=== PATIENT | male | born 1985 | race Caucasian/White ===

== ENCOUNTER 2016-12-15 09:29 | Emergency (ER) | payer OTHER ==
[~2016-12-15] VITALS: Ht 175.3 cm; Wt 80.7 kg
[~2016-12-15 09:29] MED LIST: /MUPINAS; ACET65TA OR; BACT800T; BACT800T OR; DOXY100C42 PO; IBUP200T2 PO; KEFL500C OR; MULTIVITAMIN PO; NEOSSOL TOP; No Historical Meds; VICO5TAB
[2016-12-15] MEDS ORDERED: FINA5TAB2 PO (09:44)
--- NOTE | 2016-12-15 10:52 | REP ---
CT of the lumbar spine without IV contrast: Axial images are acquired with helical scanning and are reformatted in sagittal and coronal projections. Vertebral body heights, interspacing alignment are normal. No vertebral body compression deformities. There is no spondylolysis or spondylolisthesis. The facets are normally aligned and otherwise unremarkable. 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 This should be correlated with clinical point tenderness. There are no focal disc protrusions. There is broad-based posterior disc bulging and L4-5 and L5 S1 without nerve root compression or displacement. 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 Correlate with clinical point tenderness. No focal disc protrusions. There is broad-based posterior bulging of the L4-5 and L5-S1 discs without nerve root displacement or compression. No vertebral compression or fracture otherwise. Signed by Binu De La Garza MD 12/15/2016 10:43 A
[2016-12-15] MEDS ORDERED: NAPR500T PO (11:02)
[2016-12-15] MEDS ORDERED: VALI5TAB PO (11:02)
[2016-12-15 11:11] VITALS: BP 162/72
--- NOTE | 2016-12-15 21:46 | ED PDOC ---
Post-Departure Follow-Up dr valentine faxed formal report of ct ls spine for fu Spencer Ramos MD Dec 15, 2016 21:46
== END 2016-12-15 11:14 | disposition home or self-care (01) ==
LOC: M ED 10:20
DX: M54.5 Low back pain (principal)

== ENCOUNTER → 2017-11-04 | Outpatient (REF) | payer OTHER ==
[2017-11-04 12:29] LABS: SEMEN APPEARANCE OPAQUE (OPAQUE); SEMEN VISCOSITY LIQUID (LIQUID); SEMEN pH 8.5 (7.0-8.0); SPERM ABNORMAL FORMS WBC'S NOTED; SPERM CONCENTRATION 88.1 M/ml (>=15.0); WBC CONCENTRATION >1 M/ml (<=1 M/ml)
[2017-11-04 12:30] LABS: % NORMAL FORMS 19 % (>=4); IMMOTILITY 25 %; NON PROGRESSIVE MOTILITY (c) 7 %; PROGRESSIVE MOTILITY (a) 68 % (>=32); SPERM# 176.3 M/Ejac (>=39); TOTAL FUNCTIONAL 44.9 M/Ejac.; TOTAL MOTILITY 75 % (>=40); TOTAL PROGRESSIVE SPERM 119.1 M/Ejac.
== END ==
LOC: M LAB REF 12:22
DX: Z31.61 Procreative counseling and advice using natural family planning (principal)

== ENCOUNTER → 2018-07-01 | Outpatient (REF) | payer OTHER ==
[2018-07-04 00:06] LABS: Lyme Disease IgG/IgM Antibodie <0.91 ISR (0.00-0.90); Lyme Disease IgM Ab Quantitati <0.80 index (0.00-0.79)
== END ==
LOC: M LAB REF 16:03
DX: R21 Rash and other nonspecific skin eruption (principal)

== ENCOUNTER → 2018-10-26 | Outpatient (REF) | payer OTHER ==
[~2018-10-26] MED LIST changes: +FINA5TAB2 PO; +NAPR-50 PO; +VALI5TAB PO
== END ==
LOC: M LAB REF 12:22
PROVIDERS: ATTEND Family Medicine
DX: Z51.81 Encounter for therapeutic drug level monitoring (principal)

== ENCOUNTER → 2021-07-01 | Outpatient (REF) | payer OTHER ==
[~2021-07-01] MED LIST changes: -/MUPINAS; +BACT2OIN12; -NAPR-50 PO; +NAPR-837 PO
[2021-07-01 13:29] LABS: RSV AMPLIFICATION NEGATIVE (NEGATIVE)
== END ==
LOC: M LAB REF 12:00
PROVIDERS: ATTEND Specialist
DX: Z20.822 Contact with and (suspected) exposure to COVID-19 (principal)

== ENCOUNTER → 2022-03-26 | Outpatient (CLI) | payer OTHER ==
[~2022-03-26] MED LIST changes: +ISOVUE-370 76% 100ML VIAL As Ordered ONE
== END ==
LOC: M RAD 16:01
PROVIDERS: ATTEND Otolaryngology
DX: K13.79 Other lesions of oral mucosa (principal)
CPT/HCPCS: 70491; Q9967

== ENCOUNTER → 2022-04-10 | Outpatient (REF) | payer OTHER ==
[~2022-04-10] MED LIST changes: -ISOVUE-370 76% 100ML VIAL As Ordered ONE
== END ==
LOC: M SMT 17:07
PROVIDERS: ATTEND Urology
DX: Z30.2 Encounter for sterilization (principal)

== ENCOUNTER → 2022-07-02 | Outpatient (REF) | payer OTHER ==
[2022-07-02 09:36] LABS: SEMEN APPEARANCE OPAQUE (OPAQUE); SEMEN VISCOSITY LIQUID (LIQUID); SEMEN VOLUME 2.2 ml (2.0-5.0)
[2022-07-02 09:37] LABS: WBC CONCENTRATION <=1 M/ml (<=1 M/ml)
== END ==
LOC: M SMT 09:03
PROVIDERS: ATTEND Urology
DX: Z30.2 Encounter for sterilization (principal)

== ENCOUNTER → 2022-10-18 | Outpatient (CLI) | payer OTHER | LOC: M RAD 14:37 | PROVIDERS: ATTEND Orthopaedic Surgery | DX: M54.50 Low back pain, unspecified (principal); R93.7 Abnormal findings on diagnostic imaging of other parts of musculoskeletal system ==